=== PATIENT | female | born 1945 | race Caucasian/White ===

== ENCOUNTER → 2016-08-24 | Day surgery (SDC) | payer MEDICARE, OTHER ==
[2016-08-22 09:02] VITALS: BMI 26.4
[~2016-08-24] MED LIST: BUPIVACAINE 0.25%-EPINEPHRINE 1:200,000 30 ML INF ONE; DEXAMETHASONE 4 MG/ML VIAL IV PRN; DEXAMETHASONE 4 MG/ML VIAL ONE; DIAZEPAM 5 MG TAB PO PRN; FENTANYL 100 MCG/2 ML VIAL IV PRN; FENTANYL 100 MCG/2 ML VIAL ONE; HYDROCODONE 5 MG/ACETAMIN 325 MG TAB PO PRN; KETOROLAC TROMETH 30 MG/ML VIAL IV PRN; LABETALOL 20 MG/4 ML SYRINGE IV PRN; LR 1,000 ML IV ONE; LR 1,000 ML IV SCH; MIDAZOLAM 2 MG/2 ML VIAL ONE; NS 1,000 ML IV SCH; NS 250 ML IV SCH; ONDANSETRON HCL 4 MG/2 ML VIAL IV PRN; ONDANSETRON HCL 4 MG/2 ML VIAL ONE; PROPOFOL 200 MG/20 ML VIAL IV ONE; SCOPOLAMINE TRANSDERMAL PATCH TOP PRN; hydrALAZINE 20 MG/ML VIAL IV PRN
--- NOTE | 2016-08-24 06:57 | SC.ANESEVA ---
Anesthesia Eval & Plan ([facility]) - Providers Stated Procedure: left knee surgery, remove part of my meniscus Surgeon:: Efren Riley - Medications/Allergies Allergies: Allergies No Known Allergies Allergy (Verified 05/27/12 11:40) Home Medications: Home Medication List Biotin 1,000 mcg PO DAILY 08/22/16 [History] Calcium 500 mg PO DAILY 08/22/16 [History] Ezetimibe [Zetia] 10 mg PO HS 08/22/16 [History] Losartan/Hydrochlorothiazide [Losartan-Hctz 50-12.5 mg Tab] 1 each PO DAILY 12/03 [History] Meloxicam 15 mg PO BID 08/22/16 [History] Current Medication List: Reviewed - Focused Physical Exam NPO since: after Midnight Mallampati: Class II Neck: Full Range of Motion Dental: Normal - no significant findings Cardiovascular/Chest: Normal Respiratory: Lungs clear Any problems with anesthesia, including nausea and vomiting?: No Prone to Motion Sickness: No Other: Diagnoses OTH MENISCUS DERANG, POST HORN OF MEDIAL MENISCUS, L KNEE (08/24/16) EFFUSION, LEFT KNEE (08/24/16) PAIN IN LEFT KNEE (08/24/16) Allergies Allergy/AdvReac Type Severity Reaction Status Date / Time No Known Allergies Allergy Verified 05/27/12 11:40 Home Medications Medication Instructions Recorded Last Taken Type Biotin 1,000 mcg PO DAILY 08/22/16 Unknown History Calcium 500 mg PO DAILY 08/22/16 Unknown History Ezetimibe [Zetia] 10 mg PO HS 08/22/16 Unknown History Losartan/Hydrochlorothiazide 1 each PO DAILY 08/22/16 Unknown History [Losartan-Hctz 50-12.5 mg Tab] Meloxicam 15 mg PO BID 08/22/16 Unknown History Height and Weight Patient's height 5 ft 3 in Patient's weight 67.585 kg Weight (Calculated Kilograms) 67.585 BMI 26.4 - Anesthetic Plan Anesthesia Type: General ASA Class: 2 - Focused Review of Systems Cardiac History: Yes: Hx Hypertension, Hx Abnormal Cholesterol/Hyperlipidemia HEENT: No: Other HEENT Problems Gastrointestinal: No: Hx Gastrointestinal Disorders Neurological/Musculoskeletal: No: Hx Neurological Disorders Smoking Status: Never smoker Surgical History: Yes: T&A (tonsillectomy only) Other Surgical History: tubal ligation
--- NOTE | 2016-08-24 06:57 | PCM.DCS92 ---
Discharge Outpatient Note - Final/Secondary Discharge Diagnosis (1) Tear of medial meniscus of left knee Acute S83.242A - OTH TEAR OF MEDIAL MENISCUS, CURRENT INJURY, LEFT KNEE, INIT [id number], [id number] Physician Follow up/Referrals: Efren Riley MD [Staff Physician] - Listed Time Additional Instructions: Instructions given: 08/24/16 Prescriptions (given at the office) Diet as tolerated Discharge Instructions: * Apply ice to the surgical site for 15-20 minutes out of each hour while awake for the first 2 days post-op, then apply as often as needed to control swelling and pain * Elevate the surgical extremity while sitting or lying down * Keep Bandage clean and dry * May shower after Physical Therapy appointment * Take stool softener while taking pain medication * Ambulate weight bearing as tolerated * No Driving until cleared * ASA 325mg PO QD x 14 days post op. Follow up in office as scheduled - Call office for any additional concerns. ) Follow up with Physical therapy as scheduled
--- NOTE | 2016-08-24 07:01 | HIMOPRPT ---
PREOPERATIVE DIAGNOSIS: Left knee medial meniscus tear with early degenerative changes involving the medial and patellofemoral compartments. POSTOPERATIVE DIAGNOSIS: Same with lateral meniscus tear and extensive synovitis PROCEDURES: Left knee: 1. Arthroscopic subtotal medial meniscectomy. 2. Partial lateral meniscectomy 3. Limited synovectomy. 4. Chondroplasty of the medial femoral condyle ANESTHESIA: General. SURGEON: Efren Riley MD. RECRUITMENT ASSISTANT: TRACY Segura. SPECIMENS: None. COMPLICATIONS: None. TOURNIQUET TIME: 23 minute at 250 millimeters of mercury. IMPLANTS: None. FINDINGS: Grade 2 and early 3 changes to portions of the weight-bearing surface of the medial femoral condyle. Grade 2 and early 3 changes to the posterior patella. Grade 1 changes to the lateral femoral condyle. Extensive synovitis involving suprapatellar pouch as well as medial and lateral gutters and anterior knee joint. Horizontal cleavage tear of the posterior horn medial meniscus extending to mid body with a complete radial tear at the meniscal root extending through the meniscal capsular junction. Small radial tear of the central portion lateral meniscus and midbody. SIGNIFICANT HISTORY, INDICATIONS, AND CONSENT: Carolina is a 71-year-old active female with long-standing history of knee pain and swelling as well as mechanical symptoms recalcitrant to conservative treatment, who wished to proceed with surgical intervention prior to consideration of more invasive procedures for potential improvement in pain, swelling, and mechanical symptoms. Consent was obtained. OPERATION IN DETAIL: The patient was seen in the preop holding area. The left knee was signed. Consent was reviewed. Questions were answered. H and P updated. SCD placed on the contralateral lower extremity. The patient was taken to operating room, placed in supine position on the operating table. Anesthesia placed monitoring devices and performed LMA intubation. The left lower extremity had a tourniquet placed high up on the thigh with the contralateral lower extremity in a well leg paredes and the right leg in the leg paredes. The lower extremity was then sterilely prepped and draped in usual orthopedic fashion. Time-out was performed. Patient received prophylactic antibiotics. Consensus was reached amongst participants in the OR suite. Next, Esmarch was used to exsanguinate the limb. Tourniquet raised to 250 millimeter of mercury. Standard anteromedial and lateral as well as superomedial outflow portals were created. Diagnostic arthroscopy was then performed. The suprapatellar pouch revealed significant synovitis as did the medial and lateral gutters. Patellofemoral joint was inspected with grade 2 and early 3 changes to portions of the posterior patella grade 1 changes to the trochlea. Intercondylar notch was entered and the ACL and PCL probed and found to be intact. The lateral compartment of the knee was entered with grade 1 changes to the weight-bearing surface lateral femoral condyle along with a small approximately 5-6 mm radial tear of the central portion lateral meniscus. Using a combination of biters and shaver a partial meniscectomy was performed and contoured anteriorly. We then slightly trephinated the deep MCL using a spinal needle under valgus stress in order to gently open the medial compartment of the knee. A complex tear of the medial meniscus was identified with primarily horizontal cleavage tear extending from the posterior horn to the midbody. There was a complete radial tear at the meniscal root. Grade 2 and small areas of grade 3 wear to the weight-bearing surface the medial femoral condyle were identified. A subtotal lateral meniscectomy was performed removing the posterior half of the medial meniscus and contouring anteriorly to a stable rim. Because of the grade 2 changes to the weight-bearing surface the medial femoral condyle we decided repair was not a good option for her. Synovitis was noted in the anterior aspect of the knee as well and a limited synovectomy was performed anteriorly as well as within the medial lateral gutters and suprapatellar pouch. We then performed a chondroplasty of the medial femoral condyle removing unstable cartilage and smoothing the edges with our shaver. The knee was then thoroughly lavaged and instruments removed. Incision sites were closed with 4-0 nylon suture. Tourniquet was released. The subcutaneous tissue was injected with 0.25% Marcaine at the incision sites and closed with 3-0 nylon suture. Sterile soft tissue dressings were placed. Patient was aroused by Anesthesia and taken to Postanesthesia Care Unit in stable condition. PLAN: The patient will be discharged home when okay with Anesthesia. Prescriptions were given for p.r.n. pain, constipation, nausea, and vomiting. He will return to clinic postop day 10 for suture removal wound check. Begin physical therapy for quad strengthening and range of motion on postop day 3. Recommend ASA 325 mg PO QD x14 days for DVT chemoprophylaxis.
[2016-08-24 08:10] VITALS: TEMP 97.5
--- NOTE | 2016-08-24 08:22 | SC.ANESPOS ---
Post-Anesthesia Note LOC: Fully Awake Post-Anesthesia Assessment: Awake, Returned to Baseline, Hemodynamically Stable , Pain Control Adequate Phase I & II Recovery Complete: Yes Apparent Anesthesia Complication: No : N - Vital Signs Blood Pressure: 136/67 Pulse: 106 Resp Rate: 16 O2 Sat: 99 Temp: 97.5 F
[2016-08-24 08:44] VITALS: BP 139/71; PULSE 85
== END ==
LOC: CPSC 06:12
PROVIDERS: ATTEND Orthopaedic Surgery
PROC: 0SBD4ZZ Excision of Left Knee Joint, Percutaneous Endoscopic Approach (ICD-10-PCS; principal; 2016-08-24 07:15)
DX: S83.232A Complex tear of medial meniscus, current injury, left knee, initial encounter (principal); S83.282A Other tear of lateral meniscus, current injury, left knee, initial encounter; M65.862 Other synovitis and tenosynovitis, left lower leg; M25.462 Effusion, left knee; I10 Essential (primary) hypertension; E78.00 Pure hypercholesterolemia, unspecified; Z79.899 Other long term (current) drug therapy; X58.XXXA Exposure to other specified factors, initial encounter
CPT/HCPCS: 29880; J1100; J2250; J2405; J2704; J3010; J3490